=== PATIENT | female | born 1985 ===

== ENCOUNTER 2025-04-22 11:22 | Outpatient (REF) | payer MEDICAID, SELFPAY ==
--- NOTE | 2025-04-22 10:50 | PAPFT_PTH ---
PATIENT: Denisse Rendon LOC: [facility] U#:[id number] AGE/SX: 40/F ROOM: RE04/22/[address]: Mell Wiseman NP : 1985 BED: DIS: 04/22/2025 SPEC #: [id number] RECD: 04/22/25 12:49 STATUS: DOC REQ #: [id number] SARAH: 04/22/25 10:[address]: Bowen COKER,Mell DEPT: [facility] Cytology RECD BY: Lena Henderson ENTERED: 04/22/25 12:49 SP TYPE: PAPFT OT DR: Unknown,Unknown Tissues: 1 - CX/ENDOCX FOR PAP SMEARS Procedures: PAP THIN PREP/[facility] Screening HPV DNA PROBE Comments: [id number] (HPV 16 & 18/45)
== END 2025-04-22 11:23 | disposition home or self-care (01) ==
LOC: LBN 11:22
PROVIDERS: Visit Provider Nurse Practitioner Women's Health
DX: Z12.4 Encounter for screening for malignant neoplasm of cervix (principal)
CPT/HCPCS: 88142; 87624